=== PATIENT | female | born 1950 | race Caucasian/White ===

== ENCOUNTER 2018-04-20 14:43 | Emergency (ER) | payer BC, MEDICAID ==
[~2018-04-20] VITALS: Ht 162.6 cm; Wt 98.6 kg
[~2018-04-20 14:43] MED LIST: ACET-787 PO; CARI350T PO; CLON0.5T1; GLU500 PO
[2018-04-20 15:28] VITALS: BP 156/93
[2018-04-20] MEDS ORDERED: KETOROLAC 60 MG/2 ML VIAL IM ONE (17:55)
[2018-04-20 18:58] VITALS: BP 116/61
== END 2018-04-20 18:58 | disposition home or self-care (01) ==
LOC: MED 14:43
DX: J11.1 Influenza due to unidentified influenza virus with other respiratory manifestations (principal); E11.9 Type 2 diabetes mellitus without complications; K21.9 Gastro-esophageal reflux disease without esophagitis; Z79.84 Long term (current) use of oral hypoglycemic drugs; Z79.899 Other long term (current) drug therapy
CPT/HCPCS: 71046; 96372; 99283; J1885